=== PATIENT | female | born 1960 | race Caucasian/White ===

== ENCOUNTER 2016-12-23 14:00 | Emergency (ER) | payer OTHER ==
[~2016-12-23] VITALS: Ht 160 cm; Wt 74.3 kg
[~2016-12-23 14:00] MED LIST: CALCIUM 600 MG1 EACH PO; CARAFATE1 GM PO; CLARITIN10 M3 PO; CLINDAMYCIN HC150 MG PO; FENTANYL1 EAC1 TD; FLEXERIL10 MG PO; GLUCOPHAGE1000 MG PO; HYDROCHLOROTHIA25 MG PO; LIDODERM 5% P1 PATCH TD; LORTAB 5-325 M1 EACH PO; LYRICA75 MG PO; MACROBID100 MG PO; MICARDIS40 MG PO; NAPROXEN500 MG PO; NORCO 5/3251 TABLET PO; OXYCODONE HCL5 MG PO; PRAVASTATIN SOD80 MG PO; PYRIDIUM200 MG PO; TRAMADOL HCL50 MG PO; VALIUM5 MG PO
[2016-12-23 15:46] LABS: EOSINOPHIL (%) 2.7 % (0-5); EOSINOPHIL COUNT 0.3 K/uL (0-0.3); HEMATOCRIT 37.4 % (36.0-46.0); IMMATURE GRANULOCYTE (%) 0.2 % (0.0-0.7); INSTRUMENT ABS NEUTROPHIL CT 4.4 K/uL; LYMPHOCYTE COUNT 3.9 K/uL (1.0-2.8); MCH 31.8 PG (29.0-34.0); MCHC 33.4 G/DL (30.0-36.0); MCV 95.2 FL (83-99); MEAN PLAT.VOLUME 9.4 uM^3 (9.5-12.4); MONOCYTE (%) 7.6 % (3-12); MONOCYTE COUNT 0.7 K/uL (0-0.8); NEUTROPHIL (%) 47.4 % (45-76); NEUTROPHIL COUNT 4.4 K/uL (1.8-6.4); PLATELET COUNT 298 K/uL (156-360); RBC DIS.WIDTH-CV 12.5 % (11.8-14.6); RBC DIS.WIDTH-SD 43.6 % (39-53); RED BLOOD COUNT 3.93 M/uL (3.80-5.20); WHITE BLOOD COUNT 9.3 K/uL (4.1-10.2)
[2016-12-23 15:53] LABS: CHLORIDE 98 mEq/L (99-109); POTASSIUM 3.6 mEq/L (3.7-5.4); SODIUM 135 mEq/L (136-147)
[2016-12-23 15:54] LABS: PROTHROMBIN TIME 10.2 (9.2-11.2); PTT 26.4 (25-32)
[2016-12-23 15:55] LABS: GLUCOSE 82 mg/dL (70-99)
[2016-12-23 15:57] LABS: ANION GAP 10 MEQ/L (2-14)
[2016-12-23 15:59] LABS: GFR ESTIMATE (CALCULATED) > 59 mL/min/
[2016-12-23 16:00] LABS: UREA NITROGEN (BUN) 10 mg/dL (9-23)
[2016-12-23 16:06] LABS: TROP-I INTERPRETATION NEGATIVE; TROPONIN-I < 0.01 ng/mL (0.0-0.30)
[2016-12-23 16:11] LABS: D-DIMER ELISA 0.32 mg/L FEU (< 0.57)
[2016-12-23 19:07] LABS: TROP-I INTERPRETATION NEGATIVE; TROPONIN-I < 0.01 ng/mL (0.0-0.30)
[2016-12-23 19:31] VITALS: BP 140/103
== END 2016-12-23 19:32 | disposition home or self-care (01) ==
LOC: EME 14:00
PROVIDERS: Emergency Medicine
DX: R07.9 Chest pain, unspecified (principal); E11.9 Type 2 diabetes mellitus without complications; E78.5 Hyperlipidemia, unspecified; I10 Essential (primary) hypertension; Z79.84 Long term (current) use of oral hypoglycemic drugs; F17.200 Nicotine dependence, unspecified, uncomplicated
CPT/HCPCS: 71010; 80048; 84484; 85025; 85379; 85610; 85730; 93005; 99281; 99284

== ENCOUNTER 2017-04-07 11:36 | Emergency (ER) | payer OTHER ==
[~2017-04-07] VITALS: Ht 157.5 cm; Wt 74.0 kg
[2017-04-07 12:38] LABS: HEMATOCRIT 39.7 % (36.0-46.0); MCH 31.9 PG (29.0-34.0); MCHC 33.5 G/DL (30.0-36.0); MCV 95.2 FL (83-99); MEAN PLAT.VOLUME 9.4 uM^3 (9.5-12.4); PLATELET COUNT 276 K/uL (156-360); RBC DIS.WIDTH-CV 12.9 % (11.8-14.6); RBC DIS.WIDTH-SD 45.7 % (39-53); RED BLOOD COUNT 4.17 M/uL (3.80-5.20); WHITE BLOOD COUNT 7.8 K/uL (4.1-10.2)
[2017-04-07 12:47] LABS: CHLORIDE 101 mEq/L (99-109); POTASSIUM 3.3 mEq/L (3.7-5.4); SODIUM 136 mEq/L (136-147)
[2017-04-07 12:50] LABS: GLUCOSE 100 mg/dL (70-99)
[2017-04-07 12:51] LABS: ANION GAP 9 MEQ/L (2-14); TOTAL BILIRUBIN 0.5 mg/dL (0.0-1.0)
[2017-04-07 12:53] LABS: ALKALINE PHOSPHATASE 64 IU/L (3-129); GFR ESTIMATE (CALCULATED) > 59 mL/min/
[2017-04-07 12:54] LABS: ADD MIUA? YES; BILIRUBIN NEGATIVE; BLOOD SMALL; COLOR STRAW ((YELLOW)); GLUCOSE (STRIP) NEGATIVE; KETONES NEGATIVE; LEUKOCYTES NEGATIVE; NITRITE NEGATIVE; PROTEIN (STRIP) NEGATIVE; SPECIFIC GRAVITY 1.006 (1.000-1.030); UROBILINOGEN 0.2 MG/DL (0.2-1.0)
[2017-04-07 12:54] LABS: UREA NITROGEN (BUN) 12 mg/dL (9-23)
[2017-04-07 12:56] LABS: CREATINE KINASE 109 IU/L (1-294)
[2017-04-07 12:59] LABS: TROP-I INTERPRETATION NEGATIVE; TROPONIN-I < 0.01 ng/mL (0.0-0.30)
[2017-04-07 13:01] LABS: BACTERIA NONE SEEN /HPF; EPITHELIAL CELLS RARE /HPF; MUCUS NONE SEEN /LPF; RED BLOOD CELLS 0-5 /HPF (0-5); WHITE BLOOD CELLS 0-5 /HPF (0-5)
[2017-04-07 13:51] LABS: EOSINOPHIL (%) 2.2 % (0-5); EOSINOPHIL COUNT 0.2 K/uL (0-0.3); IMM.RETIC FRACTION 11.1 % (3-19); IMMATURE GRANULOCYTE (%) 0.1 % (0.0-0.7); INSTRUMENT ABS NEUTROPHIL CT 3.3 K/uL; MONOCYTE (%) 7.7 % (3-12); MONOCYTE COUNT 0.6 K/uL (0-0.8); NEUTROPHIL (%) 40.9 % (45-76); NEUTROPHIL COUNT 3.3 K/uL (1.8-6.4); RETIC HGB EQUIVALENT 36.5 (28-36); RETICULOCYTE COUNT 1.3 % (0.5-1.8)
[2017-04-07 14:28] VITALS: BP 108/81
== END 2017-04-07 14:35 | disposition home or self-care (01) ==
LOC: EME 11:36
PROVIDERS: Nurse Practitioner Family
DX: M79.7 Fibromyalgia (principal); H05.223 Edema of bilateral orbit; E87.6 Hypokalemia; I10 Essential (primary) hypertension; E11.9 Type 2 diabetes mellitus without complications; E78.5 Hyperlipidemia, unspecified; F17.200 Nicotine dependence, unspecified, uncomplicated; Z79.84 Long term (current) use of oral hypoglycemic drugs; Z87.440 Personal history of urinary (tract) infections
CPT/HCPCS: 80053; 81003; 82330; 82550; 83735; 84100; 84439; 84443; 84484; 85025; 85027; 85045; 93005